=== PATIENT | female | born 1960 | race Caucasian/White ===

== ENCOUNTER 2019-04-21 20:17 | Emergency (ER) | payer BC ==
[2019-04-21] MEDS ORDERED: ACETAMINOPHEN-CODEINE 300/30MG TAB ONE (20:56)
[2019-04-21] MEDS ORDERED: ONDANSETRON HCL 4 MG/2 ML VIAL ONE (21:26)
[2019-04-21] MEDS ORDERED: MORPHINE SULFATE 2 MG/ML 1ML SYG ONE ×2 (21:26→22:30)
== END 2019-04-21 23:31 | disposition home or self-care (01) ==
LOC: EDH 20:17
DX: S52.101A Unspecified fracture of upper end of right radius, initial encounter for closed fracture (principal); S52.001A Unspecified fracture of upper end of right ulna, initial encounter for closed fracture; E78.5 Hyperlipidemia, unspecified; E07.9 Disorder of thyroid, unspecified; Z98.890 Other specified postprocedural states; W18.39XA Other fall on same level, initial encounter; Y93.01 Activity, walking, marching and hiking; Y92.89 Other specified places as the place of occurrence of the external cause; Y99.8 Other external cause status
CPT/HCPCS: 29105; 73080; 96374; 96375; 96376; 99284; J2405

== ENCOUNTER 2019-04-22 14:13 | Observation (INO) | payer BC ==
[2019-04-22] MEDS ORDERED: ONDANSETRON HCL 4 MG/2 ML VIAL ONE ×2 (15:08→20:28)
[2019-04-22] MEDS ORDERED: MORPHINE SULFATE 2 MG/ML 1ML SYG ONE (15:08)
[2019-04-22] MEDS ORDERED: SODIUM CHLORIDE 0.9% 1000ML 1,000 ML IV ONE (15:09)
[2019-04-22 15:12] LABS: BASOPHILS % (AUTO) 0.5 % (0.0-5.0); EOSINOPHILS % (AUTO) 0.8 % (0.0-8.0); HEMATOCRIT 40.7 % (36-48); LYMPHOCYTES % (AUTO) 22.2 % (21.0-51.0); MEAN CORPUSCULAR HEMOGLOBIN 31.4 pg (27.0-33.0); MEAN CORPUSCULAR HGB CONC 33.8 g/dL (32.0-36.0); MEAN CORPUSCULAR VOLUME 93.1 fL (79-99); MONOCYTES % (AUTO) 8.8 % (3.0-13.0); NEUTROPHILS % (AUTO) 67.7 % (40.0-77.0); PLATELET COUNT (AUTO) 339 K/uL (130-400); RED BLOOD CELL COUNT(AUTO) 4.37 MIL/uL (4.00-5.50); RED CELL DISTRIBUTION WIDTH 13.5 % (11.0-15.5); WHITE BLOOD COUNT (AUTO) 10.8 K/uL (4.8-10.8)
[2019-04-22 15:28] LABS: INR 0.99 (0.85-1.15); PROTHROMBIN TIME 10.4 SEC (9.6-11.6)
[2019-04-22] MEDS ORDERED: CEFAZOLIN SODIUM 1 GM VIAL ONE ×2 (16:41→22:05)
[2019-04-22 16:59] LABS: CREATININE 0.7 mg/dL (0.5-1.5); POTASSIUM 3.6 mmol/L (3.5-5.1)
[2019-04-22 17:04] LABS: ALBUMIN 3.9 g/dL (3.5-5.0); BILIRUBIN,TOTAL 0.7 mg/dL (0.2-1.0); TOTAL PROTEIN, SERUM 7.4 g/dL (6.0-8.3)
[2019-04-22] MEDS ORDERED: MIDAZOLAM HCL 1 MG/ML 2ML VIAL ONE (19:56)
[2019-04-22] MEDS ORDERED: PROPOFOL 10 MG/ML 20ML VIAL IV ONE (20:02)
[2019-04-22] MEDS ORDERED: ROCURONIUM 10MG/1ML SYR 10 MG/ML ML ONE (20:02)
[2019-04-22] MEDS ORDERED: FENTANYL CITRATE PF 50 MCG/1 ML 2ML VIAL ONE (20:03)
[2019-04-22] MEDS ORDERED: ROPIVACAINE 0.5% 5MG/ML 30ML IJ ONE (20:13)
[2019-04-22] MEDS: CEFAZOLIN SODIUM 1 GM VIAL ONE ×2 (20:20→21:39)
[2019-04-22] MEDS ORDERED: DEXAMETHASONE SOD PHOSPHATE 10MG/ML 1ML VIAL ONE (20:28)
[2019-04-22] MEDS ORDERED: EPHEDRINE SULFATE 50 MG/ML AMPULE ONE (22:03)
[2019-04-22] MEDS ORDERED: GLYCOPYRROLATE 1 MG/5 ML SYRINGE ONE (23:55)
[2019-04-22] MEDS ORDERED: NEOSTIGMINE 5MG/5ML SYR IV ONE (23:55)
[2019-04-23] VITALS (21 sets, daily range): BP systolic 119–152; BP diastolic 57–78
[2019-04-23] MEDS ORDERED: SODIUM CHLORIDE 0.9% 1000ML 1,000 ML IV SCH (00:04)
[2019-04-23] MEDS ORDERED: POTASSIUM CHLORIDE 20MEQ/100ML 100 ML IV PRN (00:15)
[2019-04-23] MEDS ORDERED: POTASSIUM CHLORIDE 10% ELIXIR 20 MEQ/15 ML UDCUP PO PRN (00:15)
[2019-04-23] MEDS ORDERED: PROMETHAZINE HCL 25 MG/ML 1ML AMPULE IM PRN (00:15)
[2019-04-23] MEDS ORDERED: CALCIUM CARBONATE 500 MG TABLET PO PRN (00:15)
[2019-04-23] MEDS ORDERED: LIDOCAINE HCL-MPF 1% 2ML VIAL IVP PRN (00:15)
[2019-04-23] MEDS ORDERED: OXYCODONE HCL 5 MG TAB PO PRN (00:15)
[2019-04-23] MEDS ORDERED: TRAMADOL HCL 50 MG TABLET PO PRN (00:15)
[2019-04-23] MEDS ORDERED: KETOROLAC TROMETHAMINE 15MG/ML IV PRN (00:15)
[2019-04-23] MEDS ORDERED: POTASSIUM CHLORIDE 20 MEQ ERTAB PO PRN (00:15)
[2019-04-23] MEDS ORDERED: DIPHENHYDRAMINE HCL 25 MG CAPSULE PO PRN (00:15)
[2019-04-23] MEDS ORDERED: MEPERIDINE-PF 25 MG/ML SYG ONE (00:25)
--- NOTE | 2019-04-23 01:05 | NUR ---
POST OP NOTE RECEIVED PATIENT FROM PACU VIA BED, AWAKE ALERT, OX3, NO SOB, NO C/O PAIN AT THIS TIME, RIGHT ARM WITH CECILIA BANDAGE D/I, RIGHT ARM SLING, KEEP PILLOW UNDER RIGHT ELBOW, BLE SCDS IN PLACE, PATIENTS AT BEDSIDE, TEACH PLAN OF CARE AND EXPECTED OUTCOME, BOTH VERBALIZE UNDERSTANDING VIA TEACH BACK
[2019-04-23] MEDS ORDERED: MORPHINE SULFATE 2 MG/ML 1ML SYG IV PRN (01:45)
[2019-04-23] MEDS ORDERED: ONDANSETRON HCL 4 MG/2 ML VIAL IVP PRN (01:45)
[2019-04-23] MEDS ORDERED: CEFAZOLIN SODIUM 1 GM VIAL IVP SCH (06:00)
[2019-04-23] MEDS: OXYCODONE HCL 5 MG TAB PO PRN ×2 (06:27→10:10)
[2019-04-23] MEDS ORDERED: ENOXAPARIN SODIUM 40 MG/0.4 ML SYRINGE SQ SCH (09:00)
[2019-04-23] MEDS ORDERED: FAMOTIDINE 20MG TAB 20 MG TAB PO SCH (09:00)
[2019-04-23] MEDS ORDERED: CELECOXIB 200 MG CAP PO SCH (09:00)
[2019-04-23] MEDS ORDERED: POLYETHYLENE GLYCOL 3350 17 GM POWD.PACK PO SCH (09:00)
[2019-04-23] MEDS ORDERED: HYDR-4457 PO ×2 (12:56)
--- NOTE | 2019-04-23 15:57 | NUR ---
DCP CM met with pt discussed dc plans. Pt is independent prior to admission, lives at home with spouse. Denies any equipments/services. Pt feels safe to go back home, still drives and works, spouse able to assist with transportation and needs as necessary. DC plan to home once stable. CM to cont to follow up. Addendum: 04/23/19 at 1559 by SHELIA SOLIS LVN CM Amended: Links added.
--- NOTE | 2019-04-23 17:00 | NUR ---
INSTRUCTIONS DISCHARGE INSTRUCTIONS GIVEN TO PATIENT AND SPOUSE USING TEACH BACK. DRESSING CHANGE PER MD ORDERS. FAMILY TAUGHT DRESSING CHANGE WITH GOOD TEACH BACK. NEW PRESCRIPTIONS PLACE IN PACKET ALONG WITH ALL PRINTED INFORMATION AND MD INSTRUCTIONS. IV REMOVED WITH TIP INTACT. DIRECT PRESSURE APPLIED UNTIL BLEEDING CONTROLLED THEN SITE COVERED WITH GAUZE AND SECURED WITH TAPE. NO QUESTIONS OR CONCERNS VOICED.
== END 2019-04-23 16:47 | disposition home or self-care (01) ==
LOC: EDH 14:13 → EDHIP 14:40 → 4AH 17:49
PROVIDERS: ADMIT Orthopaedic Surgery; ATTEND Orthopaedic Surgery
DX: S52.271A Monteggia's fracture of right ulna, initial encounter for closed fracture (principal); S52.501A Unspecified fracture of the lower end of right radius, initial encounter for closed fracture; E03.9 Hypothyroidism, unspecified; E78.00 Pure hypercholesterolemia, unspecified; W19.XXXA Unspecified fall, initial encounter; Y93.89 Activity, other specified; Y92.89 Other specified places as the place of occurrence of the external cause; Y99.8 Other external cause status; Z79.899 Other long term (current) drug therapy; Z79.01 Long term (current) use of anticoagulants
CPT/HCPCS: 24666; 24685; 36415; 73080; 80053; 85025; 85610; 85730; 93005; 96372; 96374; 96375; 99283; A4565; A4600; A4649 ×5; A4930 ×2; A6223; C1713 ×7; C1776 ×3; G0378 ×13; J0690 ×4; J1100; J1650; J2175; J2250; J2405 ×3; J2704; J2710; J2795; J3010; J3490 ×2; J7030 ×2

== ENCOUNTER → 2023-12-03 | Outpatient (CLI) | payer BC ==
[~2023-12-03] MED LIST: HYDR-4457 PO
[2023-12-03 12:38] LABS: ALBUMIN 3.7 g/dL (3.5-5.0); BILIRUBIN,TOTAL 0.4 mg/dL (0.2-1.0); CREATININE 0.7 mg/dL (0.5-1.5); POTASSIUM 3.8 mmol/L (3.5-5.1); TOTAL PROTEIN, SERUM 7.5 g/dL (6.0-8.3)
== END | disposition home or self-care (01) ==
LOC: LAB 08:26
PROVIDERS: ATTEND Internal Medicine Cardiovascular Disease
DX: E78.2 Mixed hyperlipidemia (principal)
CPT/HCPCS: 36415; 80053; 80061

== ENCOUNTER → 2024-11-02 | Outpatient (CLI) | payer MEDICARE ==
[2024-11-02 12:38] LABS: ALBUMIN 3.9 g/dL (3.5-5.0); BILIRUBIN,TOTAL 0.5 mg/dL (0.2-1.0); CREATININE 0.8 mg/dL (0.5-1.0); POTASSIUM 4.2 mmol/L (3.5-5.1); TOTAL PROTEIN, SERUM 7.5 g/dL (6.0-8.3)
== END | disposition home or self-care (01) ==
LOC: LAB 08:34
PROVIDERS: ATTEND Internal Medicine Cardiovascular Disease
DX: E78.00 Pure hypercholesterolemia, unspecified (principal)
CPT/HCPCS: 36415; 80053; 80061

== ENCOUNTER → 2024-11-13 | Outpatient (CLI) | payer OTHER ==
--- NOTE | 2024-11-13 10:37 | HMCIMG ---
CT CORONARY CALCIFICATION SCORING: Anatomic images were reviewed. The calcium score is being generated and reported separately. This report is for the visualized anatomy only. Visualized portions of the lungs are clear. Hilar and mediastinal structures appear normal. Osseous structures are unremarkable. Impression: 1. Negative noncardiac anatomic findings. 2. The calcium score is 337 consistent with a moderate degree of calcified plaque. This is just above the 90th percentile for a patient this age. CT was performed with one or more following dose reduction techniques: automated exposure control, adjustment of the mA and kv according to patient's size, or use of a iterative reconstruction technique.
== END | disposition home or self-care (01) ==
LOC: RAH 07:45
PROVIDERS: ATTEND Internal Medicine Cardiovascular Disease
DX: Z13.6 Encounter for screening for cardiovascular disorders (principal)
CPT/HCPCS: 75571